=== PATIENT | female | born 1930 | race Caucasian/White ===

== ENCOUNTER 2016-06-08 16:28 | Inpatient (IN) | payer OTHER ==
--- NOTE | 2016-06-08 16:48 | CPEKG ---
Heart Rate: 103 RR Interval: 583 QRSD Interval: 152 QT Interval: 384 QTC Interval: 503 QRS [place]: -62 T Wave [place]: 190 EKG Severity - ABNORMAL ECG - EKG Impression: ATRIAL FIBRILLATION EKG Impression: NONSPECIFIC IVCD WITH LAD Electronically Signed By: Curt Darnell 08-Jun-2016 21:07:19
[2016-06-08] MEDS ORDERED: NS 1,000 ML IV ONE (17:06)
[2016-06-08 17:14] LABS: % IMMATURE GRANULYOCYTES 0.9 % (0.0-1.1); ADD DIFF? NO; ADD MORPH? NO; ADD SCAN? NO; ATYPICAL LYMPHOCYTE FLAG 0 (0-99); FRAGMENT RBC FLAG 20 (0-99); HEMATOCRIT 29.1 % (38.0-47.0); LEFT SHIFT FLG 10 (0-99); LIPEMIA HEMOLYSIS FLAG 80 (0-99); MEAN CELL HEMOGLOBIN CONCENTR. 30.9 g/dL (32.4-36.7); MEAN CELL VOLUME 74.4 fL (81.5-99.8); MEAN PLATELET VOLUME 10.8 fL (8.7-11.7); PLATELET CLUMPS FLAG 10 (0-99); PLATELET COUNT 180 10^3/uL (150-400); RED BLOOD CELL COUNT 3.91 10^6/uL (4.18-5.33); RED CELL DISTRIBUTION WIDTH 18.9 % (11.5-15.2)
[2016-06-08 17:18] LABS: INR 1.45 (0.83-1.16); PROTIME(PATIENT) 17.6 SEC (12.0-15.0)
[2016-06-08 17:41] LABS: ANION GAP 13 mEq/L (8-16); CALCIUM 8.4 mg/dL (8.5-10.4); CARBON DIOXIDE 23 mEq/l (22-31); CHLORIDE 100 mEq/L (97-110); CREATININE 1.8 mg/dL (0.6-1.0); GLOMERULAR FILTRATION RATE 27; GLUCOSE 111 mg/dL (70-100); POTASSIUM 3.1 mEq/L (3.5-5.2); SODIUM 136 mEq/L (134-144)
--- NOTE | 2016-06-08 17:55 | EDPHY ---
HPI/HX/ROS/PE/MDM Narrative: CHIEF COMPLAINT: Cognitive decline, multiple falls HISTORY OF PRESENT ILLNESS: The patient is an 85 y/o female with history of atrial fibrillation who is not anticoagulated who arrives today with her friend following rapid cognitive decline onset yesterday as well as multiple falls over the past four days. 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 She reports the patient has had difficulty finding words and continuity of thought processes over the last 24 hours, but denies witnessing any slurred speech. She states that the patient's face appeared "sunken and sullen and christensen-tinged" and her feet were purple and swollen. She reports the patient has fallen every day over the last four days and her right leg appears weak. She suspects the patient is not eating or drinking adequately. Another friend reported that the patient's heart rate was rapid and irregular today and she had a fever of around 101F, so they brought her to the ED for evaluation. The patient and her friend deny vomiting, diarrhea, chest pain, palpitations, shortness of breath, headache, lightheadedness, dizziness, head trauma or loss of consciousness related to the falls, abdominal pain, urinary complaints, or paresthesias. The patient denies history of PE, DVT, or stroke; however, she discontinued her Xarelto for her atrial fibrillation in favor of natural supplements. She does report taking daily ASA 81mg. REVIEW OF SYSTEMS: Aside from elements discussed in the HPI, a comprehensive 10-point review of systems was reviewed and is negative. PAST MEDICAL HISTORY: Atrial fibrillation (not anticoagulated); Sleep apnea ( CPAP with O2); left total knee replacement, patient reports she needs a right total knee replacement. SOCIAL HISTORY: Lives alone in [place] with home care, upgraded to 24 hour care yesterday. 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 VITAL SIGNS: Reviewed by me GENERAL: Obese, resting comfortably in no respiratory distress. Somewhat anxious. HEENT: Atraumatic. Eyes: No icterus, no injection. Mouth: very dry mucous membranes. No erythema or lesions. Neck: supple with no adenopathy. LUNGS: Clear to auscultation bilaterally, no wheezes, rhonchi or rales. CARDIAC: Irregularly irregular, tachycardic. No rubs, murmurs or gallops. ABDOMEN: Soft, moderately obese, nontender, nondistended, bowel sounds normal. BACK: No CVA tenderness. EXTREMITIES: No edema. Chronic venous stasis changes to both lower extremities. Healing abrasions to toes. Well-healed surgical incision to left knee. Ecchymosis with mild tenderness to anterior lower right leg. Pain with passive range of motion of the right knee. NEURO: Alert and oriented x3, cranial nerves are intact throughout, normal motor , normal sensation. Face symmetric, no slurred speech. No word finding difficulty observed. SKIN: Warm and dry, no rash. PSYCHIATRIC: Normal mentation, no agitation. Portions of this note were transcribed by a medical bill processor. I personally performed a history, physical exam, medical decision making, and confirmed accuracy of information the transcribed note. ED Course: The patient is a non-anticoagulated 85 y/o female with history of atrial fibrillation who presents with reported 4-day decline in cognitive abilities and frequent falls. On exam, she is alert and oriented with no focal neuro deficits. She has chronic venous stasis changes to her lower legs and mild tenderness and ecchymosis to her right tib/fib. Her companions reports that she complains of severe pain in her left shoulder when they were getting her up from bed today. Her EKG shows atrial fibrillation rate 103; see tracemaster for full interpretation. Given her non-anticoagulated status with atrial fibrillation and reported neurologic changes, I am concerned she had an ischemic event. Patient also has reported fever. Plan for IV, sepsis labs, UA, head CT, chest x -ray, shoulder and right knee x-rays. 17:[address] shows no acute changes. X-rays pending. 18:20 I independently reviewed all imaging studies. Chest x-ray shows cardiomegaly and increased pulmonary markings that in conjunction with elevated BNP likely indicate CHF. Shoulder x-ray shows arthritic changes without evidence of no fracture. Tibia and fibula x-ray shows no fracture. Knee x-ray shows no fracture, signs of arthritis. Radiologist report pending. Patient's troponin and BNP are elevated. Patient will be admitted to Dr. Armstrong for elevated troponin, CHF, and atrial fibrillation. 20:08 Dr Armstrong and I were called in to reevaluate the patient due to hypotensive blood pressure reading of 76/63. She is still mentating adequately. She has strong radial and dorsalis pedal pulses. Repeat pressure a few minutes later was 138/97. It is likely the first reading was in error. Repeat EKG shows atrial fibrillation similar to previous. Sepsis Evaluation Note: The patient presents to the ED with potential infection given history of fever as well as hypoxemia and confusion. The patient did not have evidence of sepsis. MDM: After the history was obtained and physical exam performed, the following differential for the patient's altered mental status was considered included but was not limited to hypoglycemia, electrolyte disturbances, intracranial hemorrhage, tumor, drug or alcohol intoxication, stroke, or TIA. Differential diagnosis of the patient's weakness was considered including but not limited to electrolyte abnormality, anemia, cardiac ischemia, CVA, spinal cord abnormality, and infectious causes. - Data Points Imaging Results: Imaging Impressions Chest X-Ray 06/08/16 17:07 Impression: 1. Cardiomegaly with mild peribronchial thickening. 2. Suspect hiatal hernia with compressive subsegmental atelectasis. Follow-up, as clinically directed. Head CT 06/08/16 17:07 Impression: 1. Elderly brain with atrophy and probable white matter small vessel disease. 2. Negative for posttraumatic sequela. 3. Chronic left maxillary sinus opacification. 4. See above report for additional findings. Results called and discussed with Annika Seo MD on 06/08/2016 at 17:55 Shoulder X-Ray 06/08/16 17:11 Impression: 1. There is no acute osseous abnormality identified. 2. Chondrocalcinosis and moderately advanced glenohumeral and acromioclavicular degenerative osteoarthrosis. Knee X-Ray 06/08/16 17:12 Impression: Severe degenerative osteoarthrosis, most pronounced at the level of the lateral femoral-tibial compartment, with no acute osseous abnormality observed. Tibia/Fibula X-Ray 06/08/16 17:12 Impression: There is no acute osseous abnormality identified. Imaging: Discussed imaging studies w/ body recall instructor Radiologist Laboratory Results: Laboratory Results 06/08/16 16:56 06/08/16 16:56 06/08/16 06/08/16 06/08/16 16:56 16:56 16:56 WBC RBC Hgb Hct MCV MCH MCHC RDW Plt Count MPV Neut % (Auto) Lymph % (Auto) [place] % (Auto) Eos % (Auto) Baso % (Auto) Nucleat RBC Rel Count Absolute Neuts (auto) Absolute Lymphs (auto) Absolute Monos (auto) Absolute Eos (auto) Absolute Basos (auto) Absolute Nucleated RBC Immature Gran % Immature Gran # PT 17.6 SEC H SEC (12.0-15.0) INR 1.45 H (0.83-1.16) D-Dimer 1.61 ug/mLFEU H ug/mLFEU (0.00-0.50) Sodium 136 mEq/L mEq/L (134-144) Potassium 3.1 mEq/L L mEq/L (3.5-5.2) Chloride 100 mEq/L mEq/L (97-110) Carbon Dioxide 23 mEq/l mEq/l (22-31) Anion Gap 13 mEq/L mEq/L (8-16) BUN 45 mg/dL H mg/dL (7-23) Creatinine 1.8 mg/dL H mg/dL (0.6-1.0) Estimated GFR 27 Glucose 111 mg/dL H mg/dL (70-100) Calcium 8.4 mg/dL L mg/dL (8.5-10.4) Total Bilirubin 1.0 mg/dL mg/dL (0.1-1.4) Troponin I 0.060 ng/mL H ng/mL (0-0.034) NT-Pro-B Natriuret Pep 8930 pg/mL H pg/mL (0-450) 06/08/16 16:56 WBC 11.26 10^3/uL H 10^3/uL (3.80-9.50) RBC 3.91 10^6/uL L 10^6/uL (4.18-5.33) Hgb 9.0 g/dL L g/dL (12.6-16.3) Hct 29.1 % L % (38.0-47.0) MCV 74.4 fL L fL (81.5-99.8) MCH 23.0 pg L pg (27.9-34.1) MCHC 30.9 g/dL L g/dL (32.4-36.7) RDW 18.9 % H % (11.5-15.2) Plt Count 180 10^3/uL 10^3/uL (150-400) MPV 10.8 fL fL (8.7-11.7) Neut % (Auto) 82.4 % H % (39.3-74.2) Lymph % (Auto) 7.0 % L % (15.0-45.0) [place] % (Auto) 9.5 % % (4.5-13.0) Eos % (Auto) 0.0 % L % (0.6-7.6) Baso % (Auto) 0.2 % L % (0.3-1.7) Nucleat RBC Rel Count 0.0 % % (0.0-0.2) Absolute Neuts (auto) 9.28 10^3/uL H 10^3/uL (1.70-6.50) Absolute Lymphs (auto) 0.79 10^3/uL L 10^3/uL (1.00-3.00) Absolute Monos (auto) 1.07 10^3/uL H 10^3/uL (0.30-0.80) Absolute Eos (auto) 0.00 10^3/uL L 10^3/uL (0.03-0.40) Absolute Basos (auto) 0.02 10^3/uL 10^3/uL (0.02-0.10) Absolute Nucleated RBC 0.00 10^3/uL 10^3/uL (0-0.01) Immature Gran % 0.9 % % (0.0-1.1) Immature Gran # 0.10 10^3/uL 10^3/uL (0.00-0.10) PT INR D-Dimer Sodium Potassium Chloride Carbon Dioxide Anion Gap BUN Creatinine Estimated GFR Glucose Calcium Total Bilirubin Troponin I NT-Pro-B Natriuret Pep Medications Given: Discontinued Medications Sodium Chloride (Ns) 1,000 mls @ 500 mls/hr IV EDNOW ONE Stop: 06/08/16 19:05 Last Admin: 06/08/16 17:42 Dose: 1,000 mls General Time Seen by Provider: 06/08/16 16:31 Initial Vital Signs: Initial Vital Signs Temperature (C) 36.9 C 06/08/16 16:40 Heart Rate 120 H 06/08/16 16:40 Respiratory Rate 20 06/08/16 16:40 Blood Pressure 128/80 H 06/08/16 16:40 O2 Sat (%) 88 L 06/08/16 16:40 O2 Delivery Mode Nasal Cannula O2 (L/minute) 2 Allergies/Adverse Reactions: Penicillins Allergy (Verified 06/08/16 20:23) Home Medications: Medication Instructions Recorded Aspirin EC [Aspirin EC 81 mg (*)] 81 mg PO DAILY 06/08/16 Herbals/Supplements -Info Only 1 ea PO DAILY 06/08/16 Hydrochlorothiazide [HCTZ (*)] 12.5 mg PO DAILY 06/08/16 Losartan Potassium [Cozaar 50 mg 50 mg PO DAILY 06/08/16 (*)] Oxazepam 15 mg PO DAILY 06/08/16 Sertraline HCl [Zoloft 100mg (*)] 50 mg PO DAILY 06/08/16 Sertraline HCl [Zoloft 100mg (*)] 100 mg PO DAILY@1800 06/08/16 Thyroid [Clarence Thyroid 60 MG (*)] 120 mg PO DAILY 06/08/16 amLODIPine BESYLATE [Norvasc 2.5 2.5 mg PO DAILY@1800 06/08/16 mg (*)] Departure - Departure Disposition: [facility] Inpatient Acute Clinical Impression: Elevated troponin, Weakness CHF (congestive heart failure) Qualifiers: Congestive heart failure type: unspecified congestive heart failure type Congestive heart failure chronicity: unspecified congestive heart failure chronicity Qualified Code(s): I50.9 - Heart failure, unspecified Atrial fibrillation Qualifiers: Atrial fibrillation type: unspecified Qualified Code(s): I48.91 - Unspecified atrial fibrillation Condition: Fair Report Scribed for: Annika Seo Report Scribed by: Rashmi Gaona Date of Report: 06/08/16 Time of Report: 18:17
--- NOTE | 2016-06-08 20:14 | CPEKG ---
Heart Rate: 109 RR Interval: 550 QRSD Interval: 150 QT Interval: 376 QTC Interval: 507 QRS [place]: -62 T Wave [place]: 201 EKG Severity - ABNORMAL ECG - EKG Impression: ATRIAL FIBRILLATION, V-RATE 84-133 EKG Impression: RBBB AND LAFB Electronically Signed By: Curt Darnell 08-Jun-2016 21:07:19
[2016-06-08] MEDS ORDERED: ACETAMINOPHEN 325 MG TAB PO PRN (20:23)
[2016-06-08] MEDS ORDERED: ONDANSETRON DISINTEGRATING 4 MG TAB PO PRN (20:23)
[2016-06-08] MEDS ORDERED: ONDANSETRON 4 MG/2 ML VIAL IVP PRN (20:23)
[2016-06-08] MEDS: NS 1,000 ML IV SCH (21:33)
--- NOTE | 2016-06-08 21:36 | GHP ---
[f rep st] HISTORY AND PHYSICAL HISTORY OF PRESENT ILLNESS: This patient is a pleasant 85-year-old female with a history of atrial fibrillation, not on anticoagulation. She was brought to the emergency department by some friends today with poor p.o. intake, falls, and memory changes. When I speak with the patient, she is anxious in the hospital. She denies nausea, vomiting, diarrhea, urgency, frequency, dysuria, abdominal pain. Last bowel movement was this morning. She has not had any chest pain or anginal symptoms. She does have a history of coronary artery disease with stents placed in her LAD in the remote past. She has received most of her care at outside hospitals. Some ancillary history is taken from her friend, who said she thinks the patient has been having confusion for 4 days. Poor p.o. intake started 2 days ago. She confirms no diarrhea. They were concerned that she had a low-grade temperature when I saw her today. REVIEW OF SYSTEMS: Complete 10-point review of systems conducted, and negative , except as noted in the HPI. PAST MEDICAL HISTORY: 1. Coronary artery disease. 2. Hypertension. 3. Chronic kidney disease with a baseline creatinine of probably 1.2. 4. Coronary artery disease. 5. Hyperthyroidism. 6. Atrial fibrillation. ALLERGIES: Penicillin. HOME MEDICATIONS: Losartan, amlodipine, enteric-coated aspirin, hydrochlorothiazide, oxazepam, sertraline, [place] Thyroid. SOCIAL HISTORY: She lives locally. No tobacco. Minimal alcohol. FAMILY HISTORY: Parents . PHYSICAL EXAMINATION: VITAL SIGNS: Temp 37, blood pressure 128/80, pulse 120, breathing 20 times a minute, 80% on room air, 98 on 2 L. GENERAL: No acute distress. Slightly tremulous. HEENT: Sclerae anicteric. Oropharynx clear. Mucous membranes are moist. NECK: Supple without lymphadenopathy or JVD. LUNGS: Clear to auscultation bilaterally. HEART: S1, S2. Irregularly irregular. Tachycardic. ABDOMEN: Soft. There is no rebound or guarding. There is no suprapubic tenderness. EXTREMITIES: Lower extremities show trace edema bilaterally. Calves are nontender. SKIN: Without rash. NEUROLOGIC: Nonfocal. Moving all extremities. MENTAL STATUS: Appears to be alert, somewhat fearful, but she is able to follow a conversation. Does not appear particularly confused to me, although this is the first time of meeting her. DIAGNOSTIC DATA: Her white count is 11.3, hematocrit is 29.1, hemoglobin is 9. Prior value in our system, she had a hemoglobin of 15.8 a few years ago. Platelets are 180. INR is 1.45. D-dimer is 1.6. Venous lactate is 1.2. Urinalysis is pending. LFTs are pending. Chest x-ray, interpreted by me, shows cardiomegaly without clinical heart failure. Poor quality AP film. EKG, interpreted by me, shows atrial fib at 103 with left axis deviation. T- wave inversion in V3. Repeat, she has similar. Repeat shows a left anterior fascicular block and a right bundle branch block. There are no prior for comparison. Head CT shows no acute infarct. There is a knee, tib-fib, and shoulder x-ray, showing no fractures. Noted in her head CT is atrophy. I discussed the case with Dr. Annika Seo. ASSESSMENT AND PLAN: This is an 85-year-old female with atrial fibrillation, who presents with new anemia, some confusion and falls. 1. Confusion. Falls. There is no clear etiology. She does not have pneumonia. She is not in overt heart failure. She is clinically a bit dry. She does have a new anemia. Urinalysis is pending, although she does not have urinary symptoms. a. At this point in time, I figure it is likely secondary to medical cause that is as of yet undeclared. It is also possible that she is having bradycardia or tachycardia, and she will be followed on the monitor. b. I will check influenza. Will cycle troponin, cycle her hematocrit, and follow her on the heart monitor. 2. New anemia. No history suggestive of bleeding. Will repeat 1 now and 1 in the morning. She is not anticoagulated. 3. Atrial fibrillation. Sounds to be like long-standing. She does take a beta candy. We will follow. 4. Acute kidney injury. Her only previous creatinine is 1.2 in our system here , now 1.8. I do believe she is dry. We will give her some IV fluids. 5. Prophylaxis: Pharmacologic prophylaxis indicated. Renally-dosed enoxaparin. 6. Disposition. Inpatient. PT/OT. /[id number]/MODL MTDD
[2016-06-08 21:39] LABS: HEMATOCRIT 32.2 % (38.0-47.0); HEMOGLOBIN 9.8 g/dL (12.6-16.3); MEAN CELL HEMOGLOBIN 23.1 pg (27.9-34.1); MEAN CELL HEMOGLOBIN CONCENTR. 30.4 g/dL (32.4-36.7); MEAN CELL VOLUME 75.8 fL (81.5-99.8); RED BLOOD CELL COUNT 4.25 10^6/uL (4.18-5.33); RED CELL DISTRIBUTION WIDTH 19.1 % (11.5-15.2)
[2016-06-08 22:27] LABS: ALBUMIN 3.9 g/dL (3.5-5.0); BILIRUBIN,TOTAL 1.1 mg/dL (0.1-1.4); BILIRUBIN-CONJUGATED 0.7 mg/dL (0.0-0.5); BILIRUBIN-UNCONJUGATED 0.4 mg/dL (0.0-1.1); TOTAL PROTEIN 7.6 g/dL (6.3-8.2)
[2016-06-08 22:39] LABS: TROPONIN I 0.028 ng/mL (0-0.034)
[2016-06-09] MEDS: NS 1,000 ML IV SCH (02:14)
[2016-06-09 02:22] LABS: COLOR YELLOW; LEUKOCYTE ESTERASE,URINE 3+ (NEGATIVE); NITRITE,URINE NEGATIVE (NEGATIVE)
[2016-06-09 02:28] LABS: BACTERIA 4+ /hpf (NONE SEEN); MUCUS TRACE /lpf (NONE-1+); RBC,URINE 15-25 /hpf (0-3); WBC,URINE 50-182 /hpf (0-3)
[2016-06-09 05:36] LABS: % IMMATURE GRANULYOCYTES 0.7 % (0.0-1.1); ABSOLUTE IMMATURE GRANULOCYTES 0.06 10^3/uL (0.00-0.10); ADD DIFF? NO; ADD MORPH? NO; ADD SCAN? NO; ATYPICAL LYMPHOCYTE FLAG 0 (0-99); FRAGMENT RBC FLAG 20 (0-99); HEMOGLOBIN 8.2 g/dL (12.6-16.3); LEFT SHIFT FLG 10 (0-99); LIPEMIA HEMOLYSIS FLAG 80 (0-99); MEAN CELL HEMOGLOBIN 22.7 pg (27.9-34.1); MEAN CELL HEMOGLOBIN CONCENTR. 30.4 g/dL (32.4-36.7); MEAN CELL VOLUME 74.8 fL (81.5-99.8); MEAN PLATELET VOLUME 11.1 fL (8.7-11.7); PLATELET CLUMPS FLAG 50 (0-99); PLATELET COUNT 161 10^3/uL (150-400); RED BLOOD CELL COUNT 3.61 10^6/uL (4.18-5.33)
[2016-06-09 05:56] LABS: ANION GAP 13 mEq/L (8-16); CALCIUM 7.6 mg/dL (8.5-10.4); CARBON DIOXIDE 21 mEq/l (22-31); CHLORIDE 103 mEq/L (97-110); CREATININE 1.4 mg/dL (0.6-1.0); GLOMERULAR FILTRATION RATE 36; GLUCOSE 110 mg/dL (70-100); POTASSIUM 2.9 mEq/L (3.5-5.2); SODIUM 137 mEq/L (134-144)
[2016-06-09 05:58] LABS: TROPONIN I 0.045 ng/mL (0-0.034)
[2016-06-09] MEDS: DEXTROSE IV SCH (06:08)
[2016-06-09] MEDS: LEVOFLOXACIN IV SCH (06:08)
[2016-06-09] MEDS ORDERED: PROTOCOL POTASSIUM 1 DOSE MISC PRN (06:36)
[2016-06-09] MEDS ORDERED: PROTOCOL MAGNESIUM 1 DOSE IV PRN (06:36)
[2016-06-09] MEDS ORDERED: POTASSIUM CL 10 MEQ TAB PO ONE (07:38)
[2016-06-09] MEDS ORDERED: MAGNESIUM SULF 1 GM/DEXTROSE 100 ML BAG IV ONE (08:05)
[2016-06-09] MEDS: THYROID 60 MG TAB PO SCH (08:36)
[2016-06-09] MEDS: SERTRALINE HCL 50 MG TAB PO SCH (08:37)
[2016-06-09] MEDS: ASPIRIN EC 81 MG TAB PO SCH (08:37)
[2016-06-09] MEDS ORDERED: MAGNESIUM SULF 1 GM/DEXTROSE 100 ML IV ONE ×2 (08:40→15:24)
[2016-06-09] MEDS ORDERED: ENOXAPARIN 30 MG/0.3 ML SYR SC SCH (09:00)
[2016-06-09] MEDS ORDERED: HYDROCHLOROTHIAZIDE 12.5 MG CAP PO SCH (09:00)
[2016-06-09] MEDS ORDERED: Herbals/Supplements -Info Only PO SCH (09:00)
[2016-06-09] MEDS ORDERED: MAGNESIUM SULF 2 GM/WATER 50 ML IV ONE (09:21)
[2016-06-09] MEDS: OXAZEPAM 15 MG PO SCH (09:55)
[2016-06-09] MEDS: NS W/ 20 KCl/L 1,000 ML IV SCH ×2 (10:02→17:35)
[2016-06-09 14:46] LABS: ANION GAP 12 mEq/L (8-16); CALCIUM 7.6 mg/dL (8.5-10.4); CARBON DIOXIDE 20 mEq/l (22-31); CHLORIDE 104 mEq/L (97-110); CREATININE 1.3 mg/dL (0.6-1.0); GLOMERULAR FILTRATION RATE 39; GLUCOSE 119 mg/dL (70-100); MAGNESIUM 1.8 mg/dL (1.6-2.3); POTASSIUM 3.1 mEq/L (3.5-5.2); SODIUM 136 mEq/L (134-144)
[2016-06-09] MEDS ORDERED: POTASSIUM CL 20 MEQ TAB PO ONE (15:24)
--- NOTE | 2016-06-09 16:15 | HOSPPROG ---
Hospitalist Progress Note Assessment/Plan: Assessment: 85-year-old female presents with sepsis in the setting of E coli bacteremia Plan: 1. Sepsis. Evidenced by sepsis-2/ics-2 criteria, including tachycardia, tachypnea, leukocytosis, clear source of infection, evidence of autonomic dysregulation with myocardial ischemia, acute kidney injury, confusion -status post IV fluids and IV antibiotics -continue to monitor CBC and vital signs closely 2. E coli bacteremia. Acute, new problem this provider, further workup indicated. Most likely urinary source, urine culture not sent, urinalysis positive -continue IV levofloxacin -continue monitor blood culture sensitivities -get a repeat blood cultures tomorrow to demonstrate clearance -get renal ultrasound to rule out perinephric abscess -discussed with Dr. Drew Gomez, infectious Disease consultation placed for tomorrow, pending sensitivities of organism 3. Urinary tract infection. Acute, evidenced by positive urinalysis plus urinary symptoms including dysuria -IV levofloxacin as mentioned above 4. Acute kidney injury on chronic kidney disease stage 3. Baseline creatinine 1.2, creatinine peaked to 1.8, most likely secondary to hypovolemia in the setting of sepsis physiology as outlined above -continue IV fluids, serum creatinine level improving -continue monitor creatinine BUN and lytes 5. Atrial fibrillation. Permanent, EKG interpreted and demonstrating AFib with Q-wave inferiorly, right bundle branch block with left anterior fascicular block -continue aspirin, patient has not been adherent to his relative home -initiate low-dose metoprolol to maintain rate control -will require outpatient referral to cardiology clinic, her previous provider Dr. Salinas is no longer available 6. Myocardial ischemia. Marginally elevated troponin level, secondary to sepsis and myocardial strain -patient with cardiac catheterization 6 years ago and cardiac stents placed for CAD -patient has not had risk stratification since that time -continue aspirin -get nuclear medicine Lexiscan stress test tomorrow given that patient would like to proceed with orthopedic surgery as soon as possible after resolution of above 7. Osteoarthritis. Chronic, resulting in right knee pain, continue treat supportively 8. Atelectasis. Present on chest x-ray, incentive spirometer 9. Hypokalemia. Severe, provide supplementation with magnesium supplementation as well Diet. Regular Prophylaxis. High risk patient, heparin subcu Code. Full Disposition. Anticipated discharge is uncertain this time, pending stabilization of above Subjective: Patient reports that she would like to have her right knee surgically repaired soon as possible, she is averse to physician's ordering tests Objective: Vital Signs Temp Pulse Resp BP Pulse Ox 36.8 C 110 H 20 111/75 95 06/09/16 15:31 06/09/16 15:31 06/09/16 15:31 06/09/16 15:31 06/09/16 15:31 Laboratory Results 06/09/16 04:53 06/09/16 13:46 06/08/16 06/09/16 06/10/16 05:59 05:59 05:59 Intake Total 900 Balance 900 PT 17.6 SEC (12.0-15.0) H 06/08/16 16:56 INR 1.45 (0.83-1.16) H 06/08/16 16:56 - Physical Exam Constitutional: no apparent distress, chronically ill appearing, obese, uncomfortable Cardiovascular: systolic murmur (2/6 sternal), irregularly irregular, edema (1+ bilateral lower extremity edema), No tachycardia Respiratory: no respiratory distress, no rales or rhonchi, clear to auscultation Gastrointestinal: normoactive bowel sounds, soft, non-tender abdomen, no palpable masses, distension (Mild with pannus) Skin: other (Excoriation at the pannus without any open sores, redness on the buttocks without skin breakdown) Neurologic: AAOx3, sensation intact bilaterally, No weakness (Motor strength 5/ 5 bilateral lower extremities) Psychiatric: interacting appropriately, not anxious, not encephalopathic, thought process linear ICD10 Worksheet Patient Problems: Problems Problem Status Onset Atrial fibrillation Acute CHF (congestive heart failure) Acute Elevated troponin Acute Weakness Acute
[2016-06-09] MEDS: SERTRALINE HCL 100 MG TAB PO SCH (17:35)
[2016-06-09] MEDS: METOPROLOL TARTRATE 25 MG TAB PO SCH ×2 (19:03→19:20)
[2016-06-10 05:45] LABS: % IMMATURE GRANULYOCYTES 0.7 % (0.0-1.1); ABSOLUTE IMMATURE GRANULOCYTES 0.05 10^3/uL (0.00-0.10); ADD DIFF? NO; ADD MORPH? NO; ADD SCAN? NO; ATYPICAL LYMPHOCYTE FLAG 0 (0-99); FRAGMENT RBC FLAG 20 (0-99); HEMATOCRIT 27.8 % (38.0-47.0); HEMOGLOBIN 8.4 g/dL (12.6-16.3); LEFT SHIFT FLG 10 (0-99); LIPEMIA HEMOLYSIS FLAG 80 (0-99); MEAN CELL HEMOGLOBIN CONCENTR. 30.2 g/dL (32.4-36.7); MEAN CELL VOLUME 76.2 fL (81.5-99.8); MEAN PLATELET VOLUME 11.1 fL (8.7-11.7); PLATELET CLUMPS FLAG 0 (0-99); PLATELET COUNT 152 10^3/uL (150-400); RED BLOOD CELL COUNT 3.65 10^6/uL (4.18-5.33); RED CELL DISTRIBUTION WIDTH 19.4 % (11.5-15.2)
[2016-06-10 05:59] LABS: ANION GAP 12 mEq/L (8-16); CALCIUM 7.4 mg/dL (8.5-10.4); CARBON DIOXIDE 18 mEq/l (22-31); CHLORIDE 110 mEq/L (97-110); CREATININE 1.3 mg/dL (0.6-1.0); GLOMERULAR FILTRATION RATE 39; GLUCOSE 122 mg/dL (70-100); POTASSIUM 3.9 mEq/L (3.5-5.2); SODIUM 140 mEq/L (134-144)
[2016-06-10] MEDS: DEXTROSE IV SCH (07:50)
[2016-06-10] MEDS: LEVOFLOXACIN IV SCH (07:50)
[2016-06-10] MEDS: THYROID 60 MG TAB PO SCH (07:51)
[2016-06-10] MEDS: SERTRALINE HCL 50 MG TAB PO SCH (07:51)
[2016-06-10] MEDS: METOPROLOL TARTRATE 25 MG TAB PO SCH ×2 (07:51→22:42)
[2016-06-10] MEDS: ASPIRIN EC 81 MG TAB PO SCH (07:51)
[2016-06-10] MEDS: OXAZEPAM 15 MG PO SCH (08:36)
[2016-06-10] MEDS: HEPARIN 5,000 UNIT/0.5 ML SYR SC SCH ×3 (08:43→22:41)
--- NOTE | 2016-06-10 09:24 | WOCRNPDOC ---
WOCRN Advanced Assessment Note - Skin Integrity Problem, Advanced Assess Bilateral Breast Skin Integrity Problem Comment: Mild moisture associated dermatitis under breasts, with minimal involvment in pannus and groin folds. Assessed with Sunitha ALVAREZ. No need for interdry sheets for this patient. No visible fungal or bacterial involvement. May use pillowcases to seperate skin folds. Please reconsult prn. Wound care will not follow. May order bariatric bed per floor needs, however patient is well within weight limit for Accumax mattress.
[2016-06-10] MEDS ORDERED: REGADENOSON 0.4 MG/5 ML SYR IVP ONE (10:35)
--- NOTE | 2016-06-10 12:07 | CPR ---
[f rep st] NONINVASIVE CARDIAC PROCEDURE REPORT DATE OF PROCEDURE: 06/10/2016 PROCEDURE PERFORMED: Nuclear Lexiscan stress test. ORDERING PHYSICIAN: Dwight Lopez MD, hospitalist. REASON FOR TEST: 1. Known coronary artery disease. 2. Atrial fibrillation. PROCEDURE AND FINDINGS: Resting EKG showed a rate of 78 in atrial fibrillation. She had a right bu ndle branch block and LAFB. Her resting blood pressure was 107/46. Resting oxygen saturation 95%. She was asymptomatic at this time. Stress portion: Lexiscan was injected rapidly, followed by saline flush. Cardiolite was then injec rosy, followed by saline flush per protocol. There were no EKG changes. She did develop some chest tightness post infusion. Her vital signs did stay stable during that time, blood pressure 116/58, o xygen saturation 95, heart rate 72. Peak heart rate 88. RECOVERY: She did spontaneously recover, and the chest tightness did subside spontaneously. She wa s given some sips of caffeine. Recovery blood pressure 103/48, oxygen saturation 93%, heart rate 85 and remained in atrial fibrillation. At this time, she currently is stable for imaging. /[id number]/MODL
--- NOTE | 2016-06-10 16:34 | HOSPPROG ---
Hospitalist Progress Note Assessment/Plan: Assessment: 85-year-old female presents with sepsis in the setting of E coli bacteremia Plan: 1. Sepsis. Evidenced by sepsis-2/icds-2 criteria, including tachycardia, tachypnea, leukocytosis, clear source of infection, evidence of autonomic dysregulation with myocardial ischemia, acute kidney injury, confusion -status post IV fluids and IV antibiotics -continue to monitor CBC and vital signs closely 2. E coli bacteremia. Acute, most likely urinary source, urine culture not sent , urinalysis positive -continue IV levofloxacin -continue monitor blood culture sensitivities, still pending -repeat BCx sent this AM, monitor for clearance 3. Urinary tract infection. Acute, evidenced by positive urinalysis plus urinary symptoms including dysuria -IV levofloxacin as mentioned above -SAMSON w/o perinephric abscess 4. Acute kidney injury on chronic kidney disease stage 3. Baseline creatinine 1.2, creatinine peaked to 1.8, most likely secondary to hypovolemia in the setting of sepsis physiology as outlined above -continue IV fluids, serum creatinine level improving -continue monitor creatinine BUN and lytes 5. Atrial fibrillation. Permanent, EKG interpreted and demonstrating AFib with Q-wave inferiorly, right bundle branch block with left anterior fascicular block -continue aspirin, patient has not been adherent to xarelto -initiated low-dose metoprolol to maintain rate control, uptitrate this evening' s dose to 25mg bid given HR variation from 80-110s -will require outpatient referral to cardiology clinic, her previous provider Dr. Salinas is no longer available 6. Myocardial ischemia. Marginally elevated troponin level, secondary to sepsis and myocardial strain -underlying known CAD, cont ASA -nuc stress test w/o ischemia 7. Osteoarthritis. Chronic, resulting in right knee pain, continue treat supportively -per patient request, get mold insert changer R knee brace and gauge response -RCRI of 1, conferring 0.9% ruddy-op risk of cardiovascular morbidity/mortality -patient is class II low risk for an intermediate risk surgery -that said, her greatest complication risk is her pre-surg functional impairment from morbid obesity as well as deconditioning -she is very motivated to have surgery, and she would like to get a brace and engage w/ PT as much as possible to improve her pre-op function -we counseled her about concerns for falls/care at home and recommended consideration of SNF, but patient would like to work w/ PT for an additional 24hrs to determine whether she can transfer w/o asst and would be able to go home w/ HC and some private duty care 8. Atelectasis. Present on chest x-ray, incentive spirometer 9. Hypokalemia. Severe, provide supplementation with magnesium supplementation as well 10. Morbid obesity. Significantly affecting her mobility Diet. Regular Prophylaxis. High risk patient, heparin subcu Code. Full Disposition. Anticipated discharge is 06/11, pending stabilization of above Subjective: Patient would like to get stronger, she would like to go home with home care, she reports that the pain in her right knee has improved today Objective: Vital Signs Temp Pulse Resp BP Pulse Ox 36.6 C 81 18 112/79 88 L 06/10/16 15:32 06/10/16 15:32 06/10/16 15:32 06/10/16 15:32 06/10/16 15:32 Laboratory Results 06/10/16 04:34 06/10/16 04:34 06/09/16 06/10/16 06/11/16 05:59 05:59 05:59 Intake Total 900 3100 Output Total 150 Balance 900 2950 PT 17.6 SEC (12.0-15.0) H 06/08/16 16:56 INR 1.45 (0.83-1.16) H 06/08/16 16:56 - Time Spent With Patient Time Spent with Patient: greater than 35 minutes Time Spent with Patient: Greater than 35 minutes spent on this patients care, greater than 50% of time spent counseling, educating, and coordinating care regarding the above mentioned plan. - Pending Discharge Pending Discharge Within 24 Hours: Yes Pending Discharge Date: 06/11/16 Pending Discharge Time: 11:00 - Physical Exam Constitutional: not in pain, chronically ill appearing, obese, uncomfortable Cardiovascular: irregularly irregular, tachycardia, edema (Trace bilateral lower extremities) Neurologic: AAOx3 Psychiatric: interacting appropriately, not anxious, not encephalopathic, thought process linear ICD10 Worksheet Patient Problems: Problems Problem Status Onset Elevated troponin Acute CHF (congestive heart failure) Acute Atrial fibrillation Acute Weakness Acute
[2016-06-10] MEDS: NS W/ 20 KCl/L 1,000 ML IV SCH (17:46)
[2016-06-10] MEDS: SERTRALINE HCL 100 MG TAB PO SCH (17:46)
--- NOTE | 2016-06-10 18:47 | GCON ---
[f rep st] CONSULTATION INPATIENT INFECTIOUS DISEASE CONSULTATION REFERRING PHYSICIAN: Dwight Lopez MD REASON FOR REFERRAL: Bacteremia. HISTORY OF PRESENT ILLNESS: Patient is an 85-year-old female who was brought in to the [facility] on 06/08/2016, by her family complaining of cognitive decline. There was also concern for a low-grade fever. Evaluation in the ER showed a mild leukocytosis. The patient denied any uri nary symptoms. Urinalysis did show some pyuria. Blood cultures were obtained. Patient was given L evaquin yesterday, renally adjusted. Currently, she is resting comfortably. She states that she fe els much better than she did on admission. She has had no measurable fevers since admission. Leuko cytosis has resolved. PAST MEDICAL HISTORY: 1. Coronary artery disease. 2. Hypertension. 3. Chronic kidney disease. 4. Hyperthyroidism. 5. Atrial fibrillation. PAST SURGICAL HISTORY: None noted. ANTIBIOTICS: Levaquin. ALLERGIES: Patient reports allergies to penicillin. SOCIAL HISTORY: The patient has good family and friend support. No tobacco. Only occasional alcoh ol. FAMILY HISTORY: Noncontributory. REVIEW OF SYSTEMS: Other than that detailed above in History of Present Illness, comprehensive 10-s ystem review is negative. PHYSICAL EXAMINATION: VITAL SIGNS: Temperature maximum was 36.8, temperature current is 36.6, hear t rate is 81, respiratory rate is 18, blood pressure is 112/79. GENERAL: The patient is a well-for med, well-nourished, elderly female, in no acute distress. She is not toxic in appearance. She is alert oriented x3. She has a pleasant demeanor. HEENT: Normocephalic for age. Atraumatic. No sc leral icterus. No oral lesion. No drainage from the nares. Eyes: Lids and conjunctivae are withi n normal limits. Pupils are equal, round bilaterally. NECK: Supple. No meningismus. LUNGS: Antonio ar to auscultation bilaterally with good effort. HEART: Regular rate and rhythm. No significant p eripheral edema. ABDOMEN: Soft, nontender. No masses. SKIN: Warm and dry to the touch. No rash or lesion. NEUROLOGIC: Cranial nerves 2 through 12 seem to be intact. Peripheral sensation seems intact in extremities. LABORATORY DATA: Patient has a CBC dated 06/10/16, shows a white blood cell count of 7.03, hemoglob in of 8.4, hematocrit of 27.8, a platelet count 152. Differential shows 73% segmented neutrophils. Serum chemistries on 06/10/16, are all within normal limits apart from a creatinine of 1.3. Bicarb gabby is also slightly low at 18. Urinalysis shows 15-25 red cells and 50-182 white cells per high- powered field. The patient is negative for influenza by PCR. MICROBIOLOGIC DATA: Blood cultures from the emergency room on 06/08/16, are growing E coli in 1/2 s ets. Followup blood cultures drawn this morning are pending. ASSESSMENT: Escherichia coli bacteremia and confusion from this. This is most likely going to be f rom the urinary tract. Her chest x-ray does not show significant infiltrate. Would continue the Le vaquin monotherapy if she has improved clinically. Escherichia coli at this institution is known to be fairly sensitive to that drug. PLAN: 1. Continue Levaquin monotherapy. 2. Follow clinical improvement. 3. Follow up sensitivity panel. /[id number]/MODL
[2016-06-11] MEDS: HEPARIN 5,000 UNIT/0.5 ML SYR SC SCH ×3 (05:15→20:34)
[2016-06-11 05:20] LABS: % IMMATURE GRANULYOCYTES 1.3 % (0.0-1.1); ABSOLUTE IMMATURE GRANULOCYTES 0.11 10^3/uL (0.00-0.10); ADD DIFF? NO; ADD MORPH? NO; ADD SCAN? YES; FRAGMENT RBC FLAG 20 (0-99); HEMATOCRIT 30.4 % (38.0-47.0); HEMOGLOBIN 8.9 g/dL (12.6-16.3); LEFT SHIFT FLG 10 (0-99); LIPEMIA HEMOLYSIS FLAG 70 (0-99); MEAN CELL HEMOGLOBIN 22.5 pg (27.9-34.1); MEAN CELL HEMOGLOBIN CONCENTR. 29.3 g/dL (32.4-36.7); MEAN PLATELET VOLUME 10.7 fL (8.7-11.7); PLATELET CLUMPS FLAG 0 (0-99); PLATELET COUNT 175 10^3/uL (150-400); RED BLOOD CELL COUNT 3.95 10^6/uL (4.18-5.33); RED CELL DISTRIBUTION WIDTH 19.2 % (11.5-15.2)
[2016-06-11 05:32] LABS: ATYPICAL LYMPHOCYTE FLAG 190 (0-99)
[2016-06-11 05:34] LABS: ANION GAP 10 mEq/L (8-16); CALCIUM 7.4 mg/dL (8.5-10.4); CARBON DIOXIDE 20 mEq/l (22-31); CHLORIDE 113 mEq/L (97-110); CREATININE 1.3 mg/dL (0.6-1.0); GLOMERULAR FILTRATION RATE 39; GLUCOSE 112 mg/dL (70-100); SODIUM 143 mEq/L (134-144)
[2016-06-11 06:02] LABS: SCAN NEGATIVE
[2016-06-11] MEDS: ASPIRIN EC 81 MG TAB PO SCH (08:45)
[2016-06-11] MEDS: SERTRALINE HCL 50 MG TAB PO SCH (08:45)
[2016-06-11] MEDS: THYROID 60 MG TAB PO SCH (08:46)
[2016-06-11] MEDS: METOPROLOL TARTRATE 25 MG TAB PO SCH ×2 (08:46→20:34)
[2016-06-11] MEDS ORDERED: levOFLOXACIN 250 MG/DEXTROSE 50 ML IV SCH (09:00)
[2016-06-11] MEDS: OXAZEPAM 15 MG PO SCH (09:17)
[2016-06-11] MEDS ORDERED: METOPROLOL TARTRATE 25 MG TAB PO ONE (09:50)
--- NOTE | 2016-06-11 10:04 | PCMIDPN ---
Assessment/Plan: 1. E coli bacteremia, likely secondary to urinary source: Patient was prescribed 250 mg of levofloxacin; she received 1 dose of this yesterday, and her IV infiltrated this morning and she did not receive a 2nd dose. Will change dose to levofloxacin 750 mg p.o. Q 48 hours based on creatinine clearance of 42. Repeat blood cultures are pending. Renal ultrasound negative for evidence of perinephric abscess. Liver function tests are fine. Will need to keep an eye on her mental status in the setting of quinolone use in the elderly. (Monitor for confusion) 2. Felipa intertrigo left breast and beneath pannus: Start nystatin powder 3. Disposition: The patient does not have children, and Cathy, the manager social media and I had a long conversation with the patient's power of label printing machinist, Wander, and her friend, Annika. We are all worried about this patient's safety. She can no longer take care of herself appropriately at home. She will need 24/7 care, but this will take some convincing. Adult protective services may need to get involved. Social work, and the patient's friends as outlined above will have a conversation with her today. Over 35 minutes was spent with this patient today, mostly dealing with her social situation. Subjective: Feels much better today. No diarrhea. Refuses to take a shower. Alert and oriented x3. Objective: Levofloxacin 250 mg IV daily day 2. (the patient did not receive a dose today however) Afebrile Vital Signs Temp Pulse Resp BP Pulse Ox 36.5 C 92 28 H 132/87 H 95 06/11/16 08:19 06/11/16 08:46 06/11/16 08:19 06/11/16 08:19 06/11/16 08:19 Laboratory Results 06/11/16 04:34 06/11/16 04:34 06/10/16 06/11/16 06/12/16 05:59 05:59 05:59 Intake Total 3100 2850 Output Total 150 50 Balance 2950 2800 Blood cultures from June 08 are growing 1/4 bottles E coli susceptible to the quinolones Repeat blood cultures from yesterday are pending - Physical Exam General Appearance: no apparent distress, obese EENT: pharynx normal, No scleral icterus, No thrush Respiratory: wheezing Cardiac/Chest: regular rate, rhythm Abdomen: soft, distended Skin: other (Felipa intertrigo beneath the left breast and pannus. Mild.) Neuro/Psych: oriented x 3 ICD10 Worksheet Patient Problems: Problems Problem Status Onset Atrial fibrillation Acute CHF (congestive heart failure) Acute Elevated troponin Acute Weakness Acute
[2016-06-11] MEDS: NYSTATIN POWDER 15 GM BTL TP SCH ×2 (14:41→20:34)
--- NOTE | 2016-06-11 16:52 | HOSPPROG ---
Hospitalist Progress Note Assessment/Plan: Assessment: 85-year-old female presents with sepsis in the setting of E coli bacteremia Plan: 1. Sepsis. Resolved 2. E coli bacteremia. Most likely urinary source, urine culture not sent, urinalysis positive -06/10 neg Cx date, Abx stop date 06/24 -started on levofloxacin 750 q48hrs today per ID 3. Urinary tract infection. Acute, evidenced by positive urinalysis plus urinary symptoms including dysuria -SAMSON w/o perinephric abscess 4. Acute kidney injury on chronic kidney disease stage 3. Baseline creatinine 1.2, creatinine peaked to 1.8, stopped IVF 5. Atrial fibrillation. Permanent, continue aspirin, patient has not been adherent to xarelto -initiated low-dose metoprolol to maintain rate control, uptitrate to 37.5mg bid given ongoing intermittent RVR on tele -will require outpatient referral to cardiology clinic at discharge, her previous provider Dr. Salinas is no longer available 6. Myocardial ischemia. Marginally elevated troponin level, secondary to sepsis and myocardial strain -underlying known CAD, cont ASA -nuc stress test w/o ischemia -I believe that no further cardiac risk stratification required prior to R knee surgery and she does not need any additional outpatient cardiology "clearance" prior to surgery 7. Osteoarthritis. Chronic, resulting in right knee pain, continue treat supportively -per patient request, get record changer assembler R knee brace and gauge response -RCRI of 1, conferring 0.9% ruddy-op risk of cardiovascular morbidity/mortality -patient is class II low risk for an intermediate risk surgery -that said, her greatest complication risk is her pre-surg functional impairment from morbid obesity as well as deconditioning -she is very motivated to have surgery, and she would like to get a brace and engage w/ PT as much as possible to improve her pre-op function -she has an ortho consultation w/ Dr. Eason next week, and she would like to have the x-rays from this admission on CD 8. Atelectasis. Present on chest x-ray, incentive spirometer -she may require home supplemental oxygen during the daytime and the patient is amenable to daytime oxygen -she does have nocturnal oxygen but she would require home O2 order -wean oxygen order placed, please document room air sats 9. Hypokalemia. Severe, provide supplementation with magnesium supplementation as well 10. Morbid obesity. Significantly affecting her mobility Diet. Regular Prophylaxis. High risk patient, heparin subcu Code. Full Disposition. Anticipated discharge is 06/12, pending stabilization of above, patient adamant that she go home w/ HC/friends assisting, and we have extensively counseled her that this places her at high risk of falls and is less optimal than a SNF but patient wants to continue trying to work w/ friends to find a way home, patient requesting referral for new primary care provider as her previous 1 has retired, will refer to Dr. Courtney Jackson Subjective: Patient reports pain in right knee has been improving, she was able to stand independently yesterday afternoon and has been using walker Objective: Vital Signs Temp Pulse Resp BP Pulse Ox 36.7 C 79 24 H 98/70 L 92 06/11/16 15:35 06/11/16 15:35 06/11/16 15:35 06/11/16 15:35 06/11/16 15:35 Laboratory Results 06/11/16 04:34 06/11/16 04:34 06/10/16 06/11/16 06/12/16 05:59 05:59 05:59 Intake Total 3100 2850 Output Total 150 50 Balance 2950 2800 PT 17.6 SEC (12.0-15.0) H 06/08/16 16:56 INR 1.45 (0.83-1.16) H 06/08/16 16:56 - Time Spent With Patient Time Spent with Patient: greater than 35 minutes Time Spent with Patient: Greater than 35 minutes spent on this patients care, greater than 50% of time spent counseling, educating, and coordinating care regarding the above mentioned plan. - Pending Discharge Pending Discharge Within 24 Hours: Yes Pending Discharge Date: 06/12/16 Pending Discharge Time: 11:00 - Physical Exam Constitutional: no apparent distress, not in pain, chronically ill appearing, obese, No uncomfortable Cardiovascular: irregularly irregular, edema (Trace bilateral lower extremity), No tachycardia Respiratory: inspiratory crackles (Bilateral base), No expiratory wheeze, No bronchial breath sounds Gastrointestinal: normoactive bowel sounds, soft, non-tender abdomen, no palpable masses Skin: other (Hyperpigmentation bilateral lower extremity) Neurologic: AAOx3, No weakness (Motor strength 5/5 bilateral lower extremity) Psychiatric: interacting appropriately, not anxious, not encephalopathic, thought process linear ICD10 Worksheet Patient Problems: Problems Problem Status Onset Elevated troponin Acute CHF (congestive heart failure) Acute Atrial fibrillation Acute Weakness Acute
[2016-06-11] MEDS: SERTRALINE HCL 100 MG TAB PO SCH (17:39)
[2016-06-12 05:18] LABS: ANION GAP 12 mEq/L (8-16); CALCIUM 7.7 mg/dL (8.5-10.4); CARBON DIOXIDE 18 mEq/l (22-31); CHLORIDE 111 mEq/L (97-110); CREATININE 1.3 mg/dL (0.6-1.0); GLOMERULAR FILTRATION RATE 39; GLUCOSE 111 mg/dL (70-100); POTASSIUM 4.1 mEq/L (3.5-5.2); SODIUM 141 mEq/L (134-144)
[2016-06-12 05:26] LABS: ABSOLUTE NRBC COUNT 0.06 10^3/uL (0-0.01); ADD DIFF? YES; ADD MORPH? NO; FRAGMENT RBC FLAG 20 (0-99); HEMATOCRIT 29.5 % (38.0-47.0); HEMOGLOBIN 8.9 g/dL (12.6-16.3); LEFT SHIFT FLG 20 (0-99); LIPEMIA HEMOLYSIS FLAG 80 (0-99); MEAN CELL HEMOGLOBIN 22.7 pg (27.9-34.1); MEAN CELL HEMOGLOBIN CONCENTR. 30.2 g/dL (32.4-36.7); MEAN CELL VOLUME 75.3 fL (81.5-99.8); MEAN PLATELET VOLUME 10.8 fL (8.7-11.7); NRBC-AUTO% 0.6 % (0.0-0.2); PLATELET CLUMPS FLAG 0 (0-99); PLATELET COUNT 209 10^3/uL (150-400); RED BLOOD CELL COUNT 3.92 10^6/uL (4.18-5.33); RED CELL DISTRIBUTION WIDTH 19.1 % (11.5-15.2)
[2016-06-12 05:31] LABS: ADD SCAN? NO; ATYPICAL LYMPHOCYTE FLAG 180 (0-99)
[2016-06-12] MEDS: HEPARIN 5,000 UNIT/0.5 ML SYR SC SCH (05:57)
[2016-06-12 06:44] LABS: ELLIPTOCYTES 1+; HYPOCHROMIA 2+; KERATOCYTES 1+; MICROCYTES 1+; POLYCHROMASIA 1+
[2016-06-12 06:45] LABS: PLATELET ESTIMATE ADEQUATE (ADEQ)
[2016-06-12 07:57] VITALS: TEMP 98.1
[2016-06-12] MEDS: SERTRALINE HCL 50 MG TAB PO SCH (08:43)
[2016-06-12] MEDS: THYROID 60 MG TAB PO SCH (08:43)
[2016-06-12] MEDS: NYSTATIN POWDER 15 GM BTL TP SCH (08:44)
[2016-06-12] MEDS: METOPROLOL TARTRATE 25 MG TAB PO SCH (08:44)
[2016-06-12] MEDS: OXAZEPAM 15 MG PO SCH (08:57)
[2016-06-12] MEDS: ASPIRIN EC 81 MG TAB PO SCH (08:57)
--- NOTE | 2016-06-12 11:57 | PDIAF ---
- Diagnosis Diagnosis: E coli bacteremia, UTI Code Status: Full Code - Medication Management Discharge Medications: Medications to Continue on Transfer Aspirin EC [Aspirin EC 81 mg (*)] 81 mg PO DAILY 06/08/16 [Last Taken 06/07/16] Herbals/Supplements -Info Only 1 ea PO DAILY 06/08/16 [Last Taken Unknown] Losartan Potassium [Cozaar 50 mg (*)] 50 mg PO DAILY 06/08/16 [Last Taken ] Oxazepam 15 mg PO DAILY 06/08/16 [Last Taken 06/08/16] Sertraline HCl [Zoloft 100mg (*)] 50 mg PO DAILY 06/08/16 [Last Taken Unknown] Sertraline HCl [Zoloft 100mg (*)] 100 mg PO DAILY@1800 06/08/16 [Last Taken 02/23] Thyroid [[place] Thyroid 60 MG (*)] 120 mg PO DAILY 06/08/16 [Last Taken 06/07/16 ] amLODIPine BESYLATE [Norvasc 2.5 mg (*)] 2.5 mg PO DAILY@1800 06/08/16 [Last Taken 06/07/16] Metoprolol Tartrate [Lopressor 25 mg (*)] 37.5 mg PO BID #60 tab 06/12/16 [Last Taken Unknown] levOFLOXACIN [levAQUIN (*)] 750 mg PO Q2D #5 tab 06/12/16 [Last Taken Unknown] Fiscal Technician Antibiotic Stop Date: 06/20/16 Discharge Medications: Refer to the Discharge Home Medication list for PRN reason. PICC Care - Routine: N/A - Orders Services needed: Home Care, Registered Nurse, Certified Sample Coordinator, Master Circular [place] [place], Physical Therapy, Occupational Therapy Home Care Face to Face: I certify that this patient was under my care and that I had the required [id number] encounter meeting the encounter requirements on the discharge day. My findings support the fact that the patient is homebound as defined in CMS Chapter 7 Medicare Benefits Manual 30.1.1, The condition of the patient is such that there exists a normal inability to leave home and consequently, leaving home would require a considerable and taxing effort. Oxygen: 2 LPM continuously Diet Recommendation: cardiac -low fat low salt Weigh Patient: daily Activity/Weight Bearing Restrictions: As tolerated, transfer with assistance. - Labs/Radiology BMP Date: 06/16/16 Call or Fax Lab and Imaging Results to: PCP - Follow Up Care Current Providers and Referrals: VITALY ZHENG [Non Staff Provider (MD)] - Patient,NotPresent [Unknown] - As per Instructions Courtney Jackson MD [Medical Doctor] -
[2016-06-12 13:55] VITALS: BP 123/81; PULSE 88; RESP 20; O2SAT 96
--- NOTE | 2016-06-12 20:58 | GDS ---
[f rep st] DISCHARGE SUMMARY DISCHARGE DIAGNOSES: 1. Sepsis secondary to urinary source, resolved. 2. Escherichia coli bacteremia. 3. Urinary tract infection. 4. Acute kidney injury in the setting of chronic kidney disease, with a baseline creatinine of 1.2 and a discharge creatinine of 1.3. 5. Chronic atrial fibrillation. 6. Coronary artery disease. 7. Right knee osteoarthritis, awaiting orthopedic consultation. 8. Hypokalemia, resolved. CONSULTANTS: Dr. Curt Galeana, infectious disease. HISTORY: For details, please see the History and Physical dated June 08. In brief, the patient is an 85-year-old female with history of atrial fibrillation, coronary artery disease, hypertension, an d chronic kidney disease, who presents to the emergency department with confusion and recurrent fall s. Following admission, the patient met criteria for sepsis with an abnormal urinalysis. Blood cultures were drawn and grew E coli. She was started on Levaquin based on sensitivities. This was transiti oned to oral therapy every other day given her decreased renal function. Her creatinine peaked at 1 .8 and trended back down to near her baseline at 1.3 prior to discharge. Her atrial fibrillation wa s rate controlled with metoprolol. She had previously not been compliant with Xarelto and had been continued on daily aspirin. She did have a marginally elevated troponin, thought likely secondary t o sepsis and myocardial strain. She underwent nuclear stress test which was negative for acute isch emia. She likely does not need any further cardiac risk stratification prior to her right knee surg keila for which she will be consulting with Orthopedic Surgery in the outpatient setting. She does murillo ve history of chronic hypoxemia on nocturnal oxygen. Her chest imaging here was consistent with ate lectasis, and it was recommended she continue oxygen continuously day and night. After physical therapy and occupational therapy evaluations, the entire care team felt the patient w ould require fci facility for rehab given her poor functional status, weakness and ongoi ng falls at home, especially in the setting of her worsening right knee arthritis. It was recommend ed to her multiple times that she should discharge to SNF rehab; however, the patient has adamantly refused this option. She does have decisional capacity and acknowledges the risks of going home to potentially unsafe environment. Given her adamant refusal to go to a SNF, she will be discharged ho me with home health care RN, PT/OT as well as 24-hour caregivers as discussed with her family member s. Patient is discharged home in stable condition, albeit a suboptimal plan. DISCHARGE MEDICATIONS: Please see [facility] for complete updated outpatient medication list. New me dications on discharge include Levaquin 750 mg p.o. every other day to complete 10 more days of ther apy and metoprolol 37.5 mg p.o. twice daily, #60, no refills. She will continue all other medicatio ns as prescribed including aspirin, amlodipine, [place] Thyroid, Zoloft, oxazepam, and her losartan i s resumed at discharge given her renal function has returned to near baseline. FOLLOWUP: 1. Dr. Courtney Jackson, whom she has been referred to for Primary Care. 2. Greg Chung, orthopedic surgery. 3. She will need a basic metabolic panel in 1 week. /[id number]/MODL
[2016-06-13] MEDS ORDERED: amLODIPine BESYLATE 5 MG TAB PO SCH (18:00)
== END 2016-06-12 14:36 | disposition home health service (06) | DRG 872 ==
LOC: EDUNIT# → F2W 20:37
PROVIDERS: ADMIT Internal Medicine; ATTEND Internal Medicine
DX: A41.51 Sepsis due to Escherichia coli [E. coli] (principal); N39.0 Urinary tract infection, site not specified; E87.6 Hypokalemia; N17.9 Acute kidney failure, unspecified; I12.9 Hypertensive chronic kidney disease with stage 1 through stage 4 chronic kidney disease, or unspecified chronic kidney disease; N18.3 Chronic kidney disease, stage 3 (moderate); M17.11 Unilateral primary osteoarthritis, right knee; B37.2 Candidiasis of skin and nail; D64.9 Anemia, unspecified; I48.2 Chronic atrial fibrillation; G47.30 Sleep apnea, unspecified; R29.6 Repeated falls; I25.10 Atherosclerotic heart disease of native coronary artery without angina pectoris; E66.01 Morbid (severe) obesity due to excess calories; Z95.5 Presence of coronary angioplasty implant and graft; Z96.652 Presence of left artificial knee joint; Z79.82 Long term (current) use of aspirin; Z68.36 Body mass index [BMI] 36.0-36.9, adult
CPT/HCPCS: 97161-GP; 97166-GO; 97530-GO; 97530-GP; 97535-GO; A9500; G8978-GP-CK; G8978-GP-CL; G8979-GP-CJ; G8979-GP-CK; G8980-GP-CK; G8987-GO-CL; G8988-GO-CI; J1650; J1956; J2785; J3475